=== PATIENT | male | born 1985 | race Caucasian/White ===

== ENCOUNTER 2024-09-13 12:56 | Emergency (ER) | payer MEDICAID, SELFPAY ==
[2024-09-13 12:58] VITALS: BP 170/103; PULSE 79; RESP 18; TEMP 36.8; O2SAT 100; BMI 22.5
--- NOTE | 2024-09-13 13:00 | XRR_ITS ---
PROCEDURE INFORMATION: Exam: XR Chest Exam date and time: 09/13/2024 1:28 PM Age: 39 years old Clinical indication: Pain; Chest pressure; Additional info: Cp TECHNIQUE: Imaging protocol: Radiologic exam of the chest. Views: 1 view. COMPARISON: No relevant prior studies available. FINDINGS: Lungs: No pulmonary consolidation. Small symmetric nodular opacities over the lower lungs likely representing incidental overlapping nipple shadows. Pleural spaces: No pneumothorax or pleural effusion. Heart/Mediastinum: Normal size of the cardiac silhouette. Bones/joints: Regional osseous structures are unremarkable. XR/XR chest 1V portable [id number] IMPRESSION: No radiographically apparent acute cardiopulmonary disease.
--- NOTE | 2024-09-13 13:00 | ECG_ITS ---
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 Measurements Intervals [place] Rate: 81 P: 74 NH: 161 QRS: 85 QRSD: 95 T: 35 QT: 366 QTc: 427 Interpretive Statements SINUS RHYTHM No previous ECG available for comparison Electronically Signed On 09-14-2024 20:08:02 SALES SERVICE EXECUTIVE by Po Schmidt M.D. [email or web address]
--- NOTE | 2024-09-13 13:30 | ED_ITS ---
HPI - Chest Pain 2 General: Chief Complaint: Chest Pain Stated Complaint: chest pain Time Seen by Provider: 09/13/24 13:01 Source: patient Mode of arrival: ambulatory Limitations: no limitations History of Present Illness: 39-year-old male states he woke this eryn carr is been having a pain across his shoulder states been a sharp pain bilateral shoulders and across his chest some pain in his back states is worse with inspiration states pain is worse with palpation as well denies any injury he denies any cough or fever denies any vomiting or diarrhea. Associated symptoms: Deny abdominal pain, dyspnea, fever(s), nausea or vomiting Related Data Home Medications Medication Instructions Recorded Confirmed No Known Home Medications 09/13/24 09/13/24 Allergies Allergy/AdvReac Type Severity Reaction Status Date / Time No Known Allergies Allergy Verified 09/13/24 13:03 Review of Systems 2 Const: Denies: fever(s), chills, body aches or change in appetite Eyes: Denies: blurry vision or eye discomfort ENMT: Denies: throat pain or dental pain Card: Reports: chest pain Resp: Denies: dyspnea GI: Denies: abdominal pain, nausea, vomiting or diarrhea Musc: Denies: neck pain or back pain Skin/Breast: Denies: rash Neuro: Denies: headache(s) Physical Exam 2 Const: COMMON NORMALS: patient oriented x3 HENMT: COMMON NORMALS: normocephalic and atraumatic HEAD & SCALP: n ormocephalic and atraumatic Eye: COMMON NORMALS: Equal, round and reactive pupils present and EOMs intact bilaterally PUPIL: Yes Equal, round and reactive pupils present Neck/C-Spine: COMMON NORMALS: full ROM and supple Chest: COMMONS NORMALS: normal inspection of the chest Resp: COMMON NORMALS: normal respiratory effort, No retractions, No use of accessory muscles and clear to auscultation bilaterally AUSCULTATION: clear to auscultation bilaterally Cardio: COMMON NORMALS: regular rate, regular rhythm and No murmurs present (Cardio) RATE: regular rate RHYTHM: regular rhythm GI: COMMON NORMALS: Normal to inspection, nondistended, normoactive bowel sounds present, Soft to palpation, non-tender and no masses PALPATION: Yes Soft to palpation Extremity: COMMON NORMALS: normal to inspection and full ROM Neuro: COMMON NORMALS: patient oriented x3, moves all extremities and no focal motor deficits Psych: COMMON NORMALS: mental status grossly normal, Normal thought process present and cooperative THOUGHT PROCESS: Normal thought process present Skin: COMMON NORMALS: no rashes or lesions noted and no wounds GENERAL SKIN EXAM: no rashes or lesions noted Course 2 Vital Signs: Vital signs: Vital Signs Temperature 98.2 F 09/13/24 12:58 Pulse Rate 94 09/13/24 16:14 Respiratory Rate 24 H 09/13/24 16:14 Blood Pressure 145/82 09/13/24 16:14 Pulse Oximetry 94 09/13/24 16:14 Oxygen Delivery Me thod Room Air 09/13/24 16:14 MDM - Chest Pain Medical Decision Making Patient presents here with chest pain is atypical in nature his pain is worse with palpation he is point tender on exam reproduces pain troponins are negative D-dimer is negative does have an elevated white count but his ESR CRP are negative and he has no signs of infection he has no signs of endocarditis or pulmonary embolism he is stable for discharge is involved his PCP and return if worsening. Medical Records I reviewed the patient's medical records. Lab Data I reviewed the patient's lab results. 09/13/24 13:45 09/13/24 13:45 Radiology Impressions Chest X-Ray 09/13/24 13:00 IMPRESSION: No radiographically apparent acute cardiopulmonary disease. Laboratory Results WBC 20.75 10^3/uL (3.29-11.43) H 09/13/24 13:45 RBC 4.33 10^6/uL (3.85-5.65) 09/13/24 13:45 Hgb 14.00 g/dL (11.27-16.99) 09/13/24 13:45 Hct 42.8 % (37-53) 09/13/24 13:45 MCV 98.8 fl (82-101) 09/13/24 13:45 MCH 32.3 pg (27-33) 09/13/24 13:45 MCHC 32.7 g/dL (30-55) 09/13/24 13:45 RDW 14.6 % (12.1-15.1) 09/13/24 13:45 Plt Count 314 10^3/cmm (157-399) 09/13/24 13:45 MPV 9.3 fL (7.4-10.4) 09/13/24 13:45 Neut % (Auto) 84.4 % 09/13/24 13:45 Lymph % (Auto) 8.0 % 09/13/24 13:45 [place] % (Auto) 6.4 % 09/13/24 13:45 Eos % (Auto) 0.2 % 09/13/24 13:45 Baso % (Auto) 0.2 % 09/13/24 13:45 Neut # (Auto) 17.54 10^3/uL (1.8-7.7) H 09/13/24 13:45 Lymph # (Auto) 1.7 10^3/uL (0.8-4.8) 09/13/24 13:45 [place] # (Auto) 1.3 10^3/uL (0.2-0.9) H 09/13/24 13:45 Eos # (Auto) 0.0 10^3/uL (0.0-0.8) 09/13/24 13:45 Baso # (Auto) 0.0 10^3/uL (0.0-0.1) 09/13/24 13:45 Nucleated RBC % (auto) 0 % 09/13/24 13:45 Nucleated RBCs # 0.0 /100WBC 09/13/24 13:45 ESR 4 mm/hr (0-10) 09/13/24 13:45 PT 12.30 SECONDS (12.1-14.9) 09/13/24 13:45 INR 0.89 (0.8-1.2) 09/13/24 13:45 D-Dimer 0.43 ug/mLFEU (0-0.59) 09/13/24 13:45 Sodium 141 mmol/L (136-145) 09/13/24 13:45 Potassium 4.2 mmol/L (3.5-5.1) 09/13/24 13:45 Chloride 101 mmol/L (98-107) 09/13/24 13:45 Carbon Dioxide 25 mmol/L (22-29) 09/13/24 13:45 Anion Gap 19.2 (5-19) H 09/13/24 13:45 BUN 13 mg/dL (6-20) 09/13/24 13:45 Creatinine 0.9 mg/dL (0.7-1.2) 09/13/24 13:45 GFR Calculation 93.5 mL/min (90-130) 09/13/24 13:45 Glucose 105 mg/dL (65-115) 09/13/24 13:45 Calculated Osmolality 292 mOsm/kg (285-295) 09/13/24 13:45 Calcium 9.4 mg/dL (8.5-10.5) 09/13/24 13:45 Total Bilirubin 0.3 mg/dL (0.15-1.2) 09/13/24 13:45 AST 20 U/L (0-40) 09/13/24 13:45 ALT 17 U/L (0-41) 09/13/24 13:45 Alkaline Phosphatase 130 U/L (40-130) 09/13/24 13:45 Troponin T Baseline < 6 ng/L (0-15) 09/13/24 13:45 Troponin T 120 Minute 6.00 ng/L (0-15) 09/13/24 15:51 Delta Troponin T 0.88205 ABS# (0-10) 09/13/24 15:51 C-Reactive Protein 3.3 mg/L (0.0-4.9) 09/13/24 13:45 Total Protein 7.8 g/dL (6.6-8.7) 09/13/24 13:45 Albumin 5.1 g/dL (3.5-5.2) 09/13/24 13:45 Globulin 2.7 g/dL (1.3-4.6) 09/13/24 13:45 Lipase 19 U/L (13-60) 09/13/24 13:45 All radiology interpretation(s) finalized by discharge EKG Data EKG 1: I personally reviewed and interpreted this EKG as follows: EKG interpretation date: 09/13/24 EKG interpretation time: 13:19 Interpretation: nsr hr [address] elevation qrs 95 qtc 404 Discharge Plan Discharge Patient Disposition: Home Clinical Impression: Chest pain Condition: Stable Prescriptions: No Action No Known Home Medications Discharge Orders: Discharge ED (Routine); Ordered 09/13/24 Ordered By: Daniel Haynes Discharge Diet: Advance as tolerated Discharge Activity: Resume usual activity Patient Instructions: Chest Pain (ED) Coding Level of Care Code ED Bumper Operator for Chg Ghassan
[2024-09-13 13:41] VITALS: PULSE 83; RESP 16
[2024-09-13 13:52] LABS: Basophils % 0.2 %; Eosinophils % 0.2 %; Hematocrit 42.8 % (37-53); Lymphocytes # 1.7 10^3/uL (0.8-4.8); Mean Corpuscular HGB Conc 32.7 g/dL (30-55); Mean Corpuscular Hemoglobin 32.3 pg (27-33); Mean Corpuscular Volume 98.8 fl (82-101); Mean Platelet Volume 9.3 fL (7.4-10.4); Monocytes # 1.3 10^3/uL (0.2-0.9); Monocytes % 6.4 %; Neutrophils # 17.54 10^3/uL (1.8-7.7); Neutrophils % 84.4 %; Nucleated Red Blood Cells % 0 %; Platelet Count 314 10^3/cmm (157-399); Red Blood Count 4.33 10^6/uL (3.85-5.65); Red Cell Distribution Width 14.6 % (12.1-15.1); White Blood Count 20.75 10^3/uL (3.29-11.43)
[2024-09-13 14:03] LABS: Erythrocyte Sedimentation Rate 4 mm/hr (0-10)
[2024-09-13 14:05] LABS: INR 0.89 (0.8-1.2)
[2024-09-13 14:07] LABS: D Dimer 0.43 ug/mLFEU (0-0.59)
[2024-09-13 14:09] LABS: Troponin(5th) Baseline < 6 ng/L (0-15)
[2024-09-13 14:10] LABS: C Reactive Protein 3.3 mg/L (0.0-4.9)
[2024-09-13 14:14] LABS: Alanine Aminotransferase 17 U/L (0-41); Albumin Level 5.1 g/dL (3.5-5.2); Alkaline Phosphatase 130 U/L (40-130); Anion Gap 19.2 (5-19); Aspartate Amino Transferase 20 U/L (0-40); Blood Urea Nitrogen 13 mg/dL (6-20); Calcium 9.4 mg/dL (8.5-10.5); Carbon Dioxide 25 mmol/L (22-29); Chloride 101 mmol/L (98-107); Creatinine Clr Calc Pharmacy 132.1698; Globulin 2.7 g/dL (1.3-4.6); Glomerular Filtration Rate 93.5 mL/min (90-130); Glucose 105 mg/dL (65-115); Lipase 19 U/L (13-60); Osmolality Calculated 292 mOsm/kg (285-295); Potassium 4.2 mmol/L (3.5-5.1); Sodium 141 mmol/L (136-145); Total Bilirubin 0.3 mg/dL (0.15-1.2); Total Protein 7.8 g/dL (6.6-8.7)
[2024-09-13] MEDS: morphine 4 mg/mL SDV 1 mL IVP (14:28)
[2024-09-13] MEDS: ondansetron 2 mg/ML SDV 2 mL 4 MG IVP (14:28)
[2024-09-13 14:29] VITALS: BP 162/98; PULSE 84; RESP 26; O2SAT 100
[2024-09-13 15:32] VITALS: BP 131/75; PULSE 90; RESP 26; O2SAT 94
[2024-09-13 16:14] VITALS: BP 145/82; PULSE 94; RESP 24; O2SAT 94
[2024-09-13 16:39] LABS: Troponin 5 2HR Delta 0.00001 ABS# (0-10)
[2024-09-13] MEDS: ketorolac 30 mg/mL INJ 15 MG IVP (16:55)
--- NOTE | 2024-09-13 16:57 | ECG_ITS ---
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 Measurements Intervals [place] Rate: 85 P: 76 GA: 132 QRS: 81 QRSD: 95 T: 61 QT: 364 QTc: 433 Interpretive Statements SINUS RHYTHM POSSIBLE RIGHT VENTRICULAR CONDUCTION DELAY [RSR (QR) IN V1/V2] EARLY REPOLARIZATION [ST ELEVATION WITH NORMALLY INFLECTED T-WAVE] TALL T-WAVES, SUGGESTS HYPERKALEMIA TYPE 3 BRUGADA PATTERN (NON-DIAGNOSTIC) [COVED/SADDLEBACK ST ELEVATION > 0.1mV IN 2 OF V1-3] Compared to ECG 09/13/2024 13:19:30 Early repolarization now present ST (T wave) deviation now present Electronically Signed On 09-14-2024 20:16:16 FAMILY PRESERVATION WORKER by Po Schmidt M.D. [email or web address]
[2024-09-13 17:03] VITALS: BP 151/92; PULSE 85; RESP 26; O2SAT 94
== END 2024-09-13 17:35 | disposition left against medical advice (07) ==
PROVIDERS: Emergency Provider Emergency Medicine
DX: R07.9 Chest pain, unspecified (principal)
CPT/HCPCS: 36415; 71045; 80053; 83690; 84484; 85025; 85378; 85610; 85651; 86140; 93005; 96374; 96375; 99285; J1885; J2270; J2405